=== PATIENT | male | born 1975 | race Caucasian/White ===

== ENCOUNTER 2024-04-28 09:00 | Outpatient (CLI) | payer OTHER, SELFPAY ==
--- OUTSIDE RECORDS SUMMARY | 2024-04-28 09:49 | XMS_ITS | Continuity of Care Document ---
Author Organization [facility] Address [address] [place] [address] [address] [place] [address] Phone Care Team Providers Care Automation Engineer Name Role Phone Craig OD, Irineo Unavailable Unavailable Procedures Procedure Date Eye Exam & Treatment Refraction Advance Directives Directive Yes / No Effective Date File Name No Information Encounters Encounter Description Practice Location Reason(s) For Visit Diagnoses Date Provider Providers Copied on Encounter [facility], [id number] [place] [address] [address], [place], [place], [id number], [place] tel:[phone] [facility] No Information [phone] Craig OD Irineo. [address] [facility] [place] , [address], [place], [address], [place]. tel:[phone] Family History Family Member Type Diagnosis Age At Onset No Information Payers Payer name Insurance type Covered republican ID Authoriza tion(s) Medicaid [facility] [id number] Social History Type Description Quantity Date Captured Comments Sex Male Smoking Status No Information Chief Complaint And Reason For Visit No Information Reason For Referral Reason For Referral No Information History Of Present Illness Encounter Date Complaint History Of Prese nt Illness No Information Functional Status Date Functional Assessmen t No Information Instructions Date Instruction Additional Infor mation No Information Assessments Type Assessment Date No Information Patient Care Teams Name Effective Dates (start - stop) Status Members No Information
[2024-04-28 10:22] LABS: Hematocrit 46.9 % (42.0-52.0); Hemoglobin 15.2 g/dL (14.0-18.0); Mean Corpuscular HGB Conc 32.4 g/dl (32-36); Mean Corpuscular Volume 89.5 fl (80-100); Mean Platelet Volume 9.4 fl (7.4-10.4); Platelet Count Result 343 k/mm3 (150-375); Red Blood Count 5.24 M/mm3 (4.6-6.20); Red Cell Distribution Width 13.1 % (11.5-14.5)
[2024-04-28 10:54] LABS: Vitamin D 25 Hydroxy 18.6 ng/mL
[2024-04-28 16:40] LABS: Alanine Aminotransferase 54 U/L (6-50); Albumin Level 4.4 g/dL (3.5-5.1); Alkaline Phosphatase 72 U/L (38-126); Anion Gap 11 mmol/L (4-12); Aspartate Amino Transferase 31 U/L (17-59); Bilirubin,Total 0.5 mg/dL (0.2-1.3); Blood Urea Nitrogen 16 mg/dL (9-20); Calcium 9.1 mg/dL (8.4-10.2); Carbon Dioxide 25 mmol/L (22-30); Chloride 103 mmol/L (98-107); Cholesterol 202 mg/dL (0-200); Estimated Glomerular Filt Rate > 60; Glucose 86 mg/dL (65-110); HDL Direct 40 mg/dL; Potassium 4.6 mmol/L (3.4-5.0); Sodium 139 mmol/L (137-145); Triglycerides 168 mg/dL (<150)
[2024-04-28 16:51] LABS: LDL Cholesterol Direct 107 mg/dL
[2024-04-28 17:09] LABS: Prostate Specific Antigen 0.3 ng/mL (< OR = 4.0)
== END 2024-04-28 09:01 | disposition home or self-care (01) ==
LOC: ANHLAB 09:04
PROVIDERS: PCP Family Medicine; Visit Provider Nurse Practitioner Family
DX: R79.89 Other specified abnormal findings of blood chemistry (principal); I10 Essential (primary) hypertension; Z13.220 Encounter for screening for lipoid disorders; Z12.5 Encounter for screening for malignant neoplasm of prostate
CPT/HCPCS: 36415; 80053; 80061; 82306; 84153; 84443; 85027; G0103

== ENCOUNTER 2024-11-06 09:44 | Emergency (ER) | payer OTHER, SELFPAY ==
[2024-11-06] VITALS (14 sets, daily range): BP systolic 128–170; BP diastolic 78–99; PULSE 66–85; RESP 10–20; O2SAT 93–100
--- NOTE | ~2024-11-06 | XR_ITS ---
Examination: XR chest 2V Clinical History: cp Comparison: None Technique: PA and Lateral Findings: Cardiomediastinal silhouette normal size and configuration. Lungs clear. No acute bony abnormality. IMPRESSION: 1. No acute cardiopulmonary findings. Reviewed, dictated and finalized at location R.
--- NOTE | 2024-11-06 09:47 | ECG_ITS ---
Test Date: 2024-11-06 09:53:07 Measurements Intervals [place] Rate: 84 P: 58 [place]: 148 QRS: 13 QRSD: 84 T: 36 QT: 373 QTc: 443 Interpretive Statements SINUS RHYTHM LOW QRS VOLTAGE IN PRECORDIAL LEADS [QRS DEFLECTION < 1.0 mV IN CHEST LEADS] No previous ECG available for comparison Electronically Signed On 11-06-2024 11:27:11 CDT by Noah Bird M.D.
[2024-11-06 10:06] LABS: Hematocrit 46.3 % (42.0-52.0); Hemoglobin 15.5 g/dL (14.0-18.0); Immature Granulocyte Percent A 0.5 % (0-0.5); Lymphocytes Absolute Auto 2.26 K/mm3 (0.9-3.2); Mean Corpuscular HGB Conc 33.5 g/dl (32-36); Mean Corpuscular Hemoglobin 29.8 pg (26-34); Mean Corpuscular Volume 88.9 fl (80-100); Nucleated Red Blood Cells Absolute Auto 0.000 K/mm3 (0.0-0.012); Nucleated Red Blood Cells Perc 0.0 % (0.0-0.2); Platelet Count Result 335 k/mm3 (150-375); Red Blood Count 5.21 M/mm3 (4.6-6.20); White Blood Count 10.9 K/mm3 (4.5-10.0)
--- NOTE | 2024-11-06 10:11 | ED_ITS ---
HPI - Chest Pain General Chief Complaint: Chest Pain Stated Complaint: cp Time Seen by Provider: 11/06/24 09:56 History of Present Illness HPI narrative: Pt was at work and developed anterior chest pain and felt it in his jaw. Pt says it lasted a couple of minutes and resolved. Pt said that he felt very anxious and started crying out of nowhere afer the CP passed. Pt has had episodes of brief CP in past but never accompanied with this since of anxiety. Pt no having any CP now. Related Data Allergies Allergy/AdvReac Type Severity Reaction Status Date / Time losartan AdvReac Severe Dizziness Verified 06/02/24 08:04 Review of Systems 2 Review of Systems: All systems reviewed & are unremarkable except as noted in HPI and below PMFSH Past Medical History Medical History BMI 50.0-59.9, adult Knee pain, right Growth of eyelid Elevated TSH Screening for prostate cancer Screening for lipid disorders Essential hypertension BMI greater than 40 Family History Family History Father Hypertension Family history of diabetes mellitus in first degree relative Mother Hypertension Social History Social History Smoking status: Former smoker Tobacco type: cigars Second hand tobacco smoke exposure: Yes Alcohol intake: current Substance use: never Substance use type: does not use Do You Feel Safe in your Home?: Yes Lack of Transportation: No Lack of Food: Never True Current Housing: I Have Housing Concerned About Future Housing: No Difficulty Paying Gas/Electric Bills: No Difficulty Paying for Meds: No Currently Unemployed: No Education: Associate Degree Difficulty w/ Childcare or Family Care: No Living arrangements: with family Occupation/Education: occupation 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 Exam 2 Const: General: healthy appearing and no acute distress Nutritional Appearance: well nourished Orientation/consciousness: patient oriented x3 Limitations: no limitations Resp: Effort & Inspection: normal respiratory effort Auscultation: clear to auscultation bilaterally Cardio: Rate: regular rate Rhythm: regular rhythm GI: Auscultation: normal bowel sounds Skin: General skin exam: normal color Rashes: no rashes Wounds: no wounds Neuro: General: patient oriented x3, moves all extremities, no meningeal signs and no focal motor deficits Speech: normal speech Extrem: General: normal to inspection and no clubbing, cyanosis or edema Psych: Mental Status: mental status grossly normal Affect: normal affect Attitude: cooperative Course Vital Signs Vital signs: Vital Signs Pulse Rate 84 11/06/24 09:48 Respiratory Rate 16 11/06/24 09:48 Blood Pressure 170/93 H 11/06/24 09:48 Pulse Oximetry 99 11/06/24 09:48 Pulse Rate 66 11/06/24 13:50 Respiratory Rate 16 11/06/24 13:50 Blood Pressure 143/83 H 11/06/24 13:50 Pulse Oximetry 97 11/06/24 13:50 Oxygen Delivery Room Air 11/06/24 10:10 MDM - Chest Pain MDM Narrative Medical decision making narrative: Pt presents with episode of sharp CP lasting a minute or two. No CP now. Started an hour [employer] INSTRU[employer]. DDx cad, stemi, nstemi, no likely PE, chest wall pain, anxiety, pneutohorax among others. Will get labs and ekg and cxr and will need second trop at 3 hrs. Differential Diagnosis Differential diagnosis: Likely unstable angina pectoris, atypical chest pain, st elevation myocardial infarction, costochondritis and chest pain Lab Data Attestation: I reviewed the patient's lab results. 11/06/24 09:58 11/06/24 09:58 Labs: Lab Results 11/06/24 11/06/24 Range/Units 09:58 12:40 WBC 10.9 H (4.5-10.0) K/mm3 RBC 5.21 (4.6-6.20) M/mm3 Hgb 15.5 (14.0-18.0) g/dL Hct 46.3 (42.0-52.0) % MCV 88.9 (80-100) fl MCH 29.8 (26-34) pg MCHC 33.5 (32-36) g/dl RDW 13.4 (11.5-14.5) % Plt Count 335 (150-375) k/mm3 MPV 9.4 (7.4-10.4) fl Immature Gran % (Auto) 0.5 (0-0.5) % Neut % (Auto) 68.7 (45.5-73.1) % Lymph % (Auto) 20.7 (18.3-44.2) % [place] % (Auto) 8.8 H (2.6-8.5) % Eos % (Auto) 1.0 (0-4.4) % Baso % (Auto) 0.3 (0.2-1.2) % Lymph # (Auto) 2.26 (0.9-3.2) K/mm3 [place] # (Auto) 1.0 H (0.1-0.6) K/mm3 Eos # (Auto) 0.1 (0-0.3) K/mm3 Baso # (Auto) 0.0 (0.0-0.1) K/mm3 Abs Immat Gran (auto) 0.05 H (0.00-0.031) K/mm3 Absolute Neuts (auto) 7.5 H (1.3-6.7) K/mm3 Absolute Nucleated RBC 0.000 (0.0-0.012) K/mm3 Nucleated RBC % 0.0 (0.0-0.2) % PT 13.4 (11.1-14.7) Seconds INR 1.0 APTT 28.0 (22.3-36.8) Seconds Sodium 139 (137-145) mmol/L Potassium 3.6 (3.4-5.0) mmol/L Chloride 106 (98-107) mmol/L Carbon Dioxide 24 (22-30) mmol/L Anion Gap 9 (4-12) mmol/L BUN 17 (9-20) mg/dL Creatinine 0.98 (0.7-1.3) mg/dL Estim Creat Clear Calc 103 ml/min Estimated GFR > 60 (59 - ) Glucose 109 (65-110) mg/dL Calcium 9.1 (8.4-10.2) mg/dL Total Bilirubin 0.6 (0.2-1.3) mg/dL AST 32 (17-59) U/L ALT 35 (6-50) U/L Alkaline Phosphatase 78 (38-126) U/L Troponin I < 0.012 < 0.012 (0.000-0.034) ng/mL Total Protein 8.2 (6.3-8.2) g/dL Albumin 4.5 (3.5-5.1) g/dL Lipase 52 (23-300) U/L Imaging Data Attestation: I personally reviewed and interpreted this imaging study as follows: My impression: nad Radiologist's impression: no acute process ECG Data EKG #1: Interpretation: nsr rate 84 low voltage qrs no acute st or t wave changes, independently rewviewed by me EKG # 2 no change Discharge Plan Discharge Clinical Impression: Atypical chest pain Patient Disposition: Home Condition: Improved Instructions: Antibiotic Form, Chest Wall Pain (ED) Patient Language: [place] Prescriptions: New naproxen [Naprosyn] 500 mg tablet 500 mg PO BID Qty: 20 0RF No Action cholecalciferol (vitamin D3) 1,250 mcg (50,000 unit) capsule 1,250 mcg PO WEEKLY Qty: 8 0RF metoprolol succinate 50 mg tablet extended release 24 hr 75 mg PO DAILY Qty: 135 0RF metoprolol succinate 50 mg tablet extended release 24 hr 75 mg PO DAILY Qty: 135 0RF Follow-up/Referrals: Jose Garces MD [Primary Care Provider, Family Practice] Stand Alone Forms: Work/School Release IP
[2024-11-06] MEDS: ASPIRIN 81 MG CHEWABLE TABLET 324 MG PO (10:14)
[2024-11-06 10:26] LABS: INR 1.0; Prothrombin Time 13.4 Seconds (11.1-14.7)
[2024-11-06 10:27] LABS: Alanine Aminotransferase 35 U/L (6-50); Albumin Level 4.5 g/dL (3.5-5.1); Alkaline Phosphatase 78 U/L (38-126); Anion Gap 9 mmol/L (4-12); Aspartate Amino Transferase 32 U/L (17-59); Bilirubin,Total 0.6 mg/dL (0.2-1.3); Blood Urea Nitrogen 17 mg/dL (9-20); Calcium 9.1 mg/dL (8.4-10.2); Carbon Dioxide 24 mmol/L (22-30); Chloride 106 mmol/L (98-107); Estimated CRCL calculation 103 ml/min; Estimated Glomerular Filt Rate > 60; Glucose 109 mg/dL (65-110); Lipase 52 U/L (23-300); Partial Thromboplastin Time 28.0 Seconds (22.3-36.8); Potassium 3.6 mmol/L (3.4-5.0); Sodium 139 mmol/L (137-145); Total Protein 8.2 g/dL (6.3-8.2)
[2024-11-06 10:34] LABS: Troponin I < 0.012 ng/mL (0.000-0.034)
--- NOTE | 2024-11-06 13:00 | ECG_ITS ---
Test Date: 2024-11-06 12:47:35 Measurements Intervals [place] Rate: 68 P: 54 [place]: 182 QRS: 9 QRSD: 84 T: 37 QT: 421 QTc: 450 Interpretive Statements SINUS RHYTHM LOW QRS VOLTAGE IN PRECORDIAL LEADS [QRS DEFLECTION < 1.0 mV IN CHEST LEADS] Compared to ECG 11/06/2024 09:53:07 No significant changes Electronically Signed On 11-06-2024 13:28:15 CDT by Noah Bird M.D.
[2024-11-06 13:07] LABS: Troponin I < 0.012 ng/mL (0.000-0.034)
== END 2024-11-06 13:50 | disposition home or self-care (01) ==
PROVIDERS: Emergency Provider Emergency Medicine; PCP Family Medicine
DX: R07.89 Other chest pain (principal); I10 Essential (primary) hypertension; Z87.891 Personal history of nicotine dependence
CPT/HCPCS: 36415; 71046; 80053; 83690; 84484; 85025; 85610; 85730; 93005; 99284; A9270